=== PATIENT | male | born 1960 | race Caucasian/White ===

== ENCOUNTER → 2016-03-18 | Outpatient (REF) ==
--- NOTE | 2016-03-18 21:44 | REP ---
Clinical: Pain and disability. Technique: Internal rotation, external rotation, and Y view of the right shoulder. Findings: Spurring and cortical irregularity at the acromioclavicular joint noted without evidence for acute or healed fracture/injury. Subtle blunting to the glenoid rim is suggested with minimal increased sclerosis and cortical irregularity along the inferior rim. The joint spaces otherwise intact. No acute fracture. Subacromial space is normal. No periarticular calcifications are identified. Impression: Mild arthritic degenerative changes. Signed by Farhad Fernandez MD 03/18/2016 09:36 P
--- NOTE | 2016-03-18 21:57 | REP ---
Clinical: Pain and disability. Technique: AP, lateral, bilateral oblique, and coned-down views of the left knee. Findings: The tibiofemoral joint demonstrates subtle medial narrowing with a minuscule marginal spurring as well as cortical irregularity to the femoral condyles. The posterior patellar margin demonstrates increased sclerosis with minimal patellofemoral joint space narrowing and lateral / inferior osteophyte. Suprapatellar effusion suggested by lateral radiograph with mild anterior swelling. Impression: Mild arthritic degenerative changes as described above. Signed by Farhad Fernandez MD 03/18/2016 09:49 P
== END ==
LOC: M SMT 11:09
PROVIDERS: ATTEND Internal Medicine
DX: Z02.71 Encounter for disability determination (principal)

== ENCOUNTER → 2016-05-27 | Outpatient (CLI) | payer OTHER ==
[~2016-05-27] MED LIST: ASPI81TA85 PO; LOSA50TA20 PO; MULT1TAB10 PO; SIMV40TA2 PO; TERA10CA3 PO
[2016-05-27 13:23] LABS: ALBUMIN 4.3 GM/DL (3.2-5.2); ALBUMIN/GLOBULIN RATIO 1.23 (1.00-1.93); ALKALINE PHOSPHATASE 87 U/L (45-117); ALT/SGPT 37 U/L (12-78); ANION GAP 8 MEQ/L (8-16); AST/SGOT 25 U/L (15-37); BILIRUBIN,TOTAL 0.7 MG/DL (0.2-1.0); BLOOD UREA NITROGEN 19 MG/DL (7-18); CALCIUM LEVEL 9.3 MG/DL (8.5-10.1); CARBON DIOXIDE LEVEL 27 MEQ/L (21-32); CHLORIDE LEVEL 103 MEQ/L (98-107); CREATININE FOR GFR 0.78 MG/DL (0.70-1.30); GLOMERULAR FILTRATION RATE > 60.0 (>56); GLUCOSE, FASTING 103 MG/DL (70-105); POTASSIUM SERUM 4.6 MEQ/L (3.5-5.1); SODIUM LEVEL 138 MEQ/L (136-145); TOTAL PROTEIN 7.8 GM/DL (6.4-8.2)
[2016-05-27 13:25] LABS: MEAN CORPUSCULAR HGB CONC 32.9 g/dl (32.0-36.5); MEAN CORPUSCULAR VOLUME 91.4 fl (80.0-96.0); RED CELL DISTRIBUTION WIDTH 12.9 % (11.5-14.5); WHITE BLOOD COUNT 10.2 K/mm3 (4.0-10.0)
[2016-05-27 13:32] LABS: INR 0.89
--- NOTE | 2016-05-27 22:38 | ECGEPIP ---
Stationary ECG Study [facility] Test Date: 2016-05-27 Pat Name: CHERYL PYLE Department: Room: - Gender: M [employer] Vehicle Operator: MARGA : 1960 Requested By: John Stockton Order Number: [id number] Reading MD: Navi Hadley Measurements Intervals [place] Rate: 84 P: 36 WI: 142 QRS: 41 QRSD: 84 T: 26 QT: 370 QTc: 438 Interpretive Statements SINUS RHYTHM WITH FREQUENT VENTRICULAR PREMATURE COMPLEXES ABNORMAL RHYTHM ECG NO PRIOR TRACING IN THE SYSTEM Electronically Signed On 05-27-2016 22:38:12 EDT by Navi Hadley
--- NOTE | 2016-05-28 03:49 | REP ---
Clinical: Hypertension and chest pain . Comparison: None . Technique: PA and lateral. Findings: The mediastinum and cardiac silhouette are normal. The lung rapp are clear and without acute consolidation, effusion, or pneumothorax. The skeletal structures are intact and normal. Impression: 1. No acute cardiopulmonary process. Signed by Farhad Fernandez MD 05/28/2016 03:40 A
== END ==
LOC: M ADMPAT 10:07
PROVIDERS: ATTEND Orthopaedic Surgery
DX: Z01.818 Encounter for other preprocedural examination (principal); M17.11 Unilateral primary osteoarthritis, right knee

== ENCOUNTER 2016-06-08 07:10 | Inpatient (IN) | payer OTHER ==
[2016-05-27 11:17] VITALS: BP 159/106
--- NOTE | 2016-06-02 13:18 | HPE ---
DATE OF ADMISSION: 06/08/2016 CHIEF COMPLAINT: Right knee pain and stiffness from work-related injury. ATTENDING PHYSICIAN: Dr. Stockton HISTORY: This is a pleasant 55-year-old male patient with progressively worsening right knee pain and stiffness. He has failed to improve with conservative management to include injections, activity modification and a home physical therapy program. His symptoms all stem from a longstanding work-related injury to that left knee. He has symptoms with weightbearing activities and activities of daily living He has advanced degenerative changes of the right knee on x- ray. He has elected for surgery for his continued symptoms. He has consented for a right total knee arthroplasty by Dr. Stockton. ALLERGIES: No known drug allergies. CURRENT MEDICATIONS: - aspirin 81 mg one tablet once per day, discontinue that on Wednesday - Zocor 20 mg one tablet at bedtime - Losartan 50 mg one tablet once per day - terazosin 1 mg one tablet once per day MEDICAL HISTORY: Includes: Symptomatic osteoarthritis of right knee. Elevated cholesterol. Hypertension. Benign prostatic hypertrophy (BPH). SURGICAL HISTORY: He has had a prior knee scope on the right side. He has had his spleen removed. He has had a prior femur fracture. SOCIAL HISTORY: He uses alcohol occasionally. He continues to smoke. FAMILY HISTORY: Noncontributory. REVIEW OF SYSTEMS: Denies fever or chills. Denies chest pain, shortness breath or cough. Denies difficulty breathing. Denies abdominal pain. Denies nausea or vomiting. Denies recent upper respiratory infection (URI) or urinary tract infection (UTI) symptoms. PHYSICAL EXAM: Today reveals a well-nourished, well-developed alert male patient. He walks with a limping gait. He favors his right side. Exam of the right knee does reveal range of motion is 0 to about 110 degrees. There is tenderness over the medial joint line. The calf is soft, nontender to palpation. The skin is intact. No erythema, edema or ecchymosis. There is trace pitting edema in the right leg. Dorsalis pedis, posterior tib pulses are palpable. Neck is supple without adenopathy or jugular venous distention (JVD). Lungs are clear to auscultation without rales or wheeze. Heart regular rate and rhythm. Abdomen: Bowel sounds are present. Current vital signs: Blood pressure 144/86, pulse 88, respirations 16, weight 340 pounds, temperature 97.3, height 5 foot 10. Laboratory data: UA is within normal limits. Urine culture no growth. Nasal and sinus cultures normal arleen. Glucose 103, BUN 19, creatinine 0.78. Sodium 138, potassium 4.6, sed rate of 10, WBC count 10.2, hemoglobin 14.8, hematocrit 45.1, INR 0.89. ProTime 12.2. IMPRESSION: Symptomatic osteoarthritis of his right knee. PLAN: He has consented for right total knee arthroplasty by Dr. Stockton. ADDENDUM (06/08/2016): The patient seen and examined. He wished to go ahead with a right total knee arthroplasty. The gentleman is morbidly obese and understands the nature of this and the risks of bleeding, infection, damage to nerves, vessels, persistent pain, wear loosening, blood clots, medical problems , among others. He also reminds me that he had an old femur fracture on this side so we will have to likely use some sort of external alignment guide as opposed to the intramedullary alignment. Preoperative clearance was obtained. VLAD
[~2016-06-08] VITALS: Ht 180.3 cm; Wt 154.0 kg
[2016-06-08] MEDS ORDERED: COUM1TAB17 PO (08:04)
[2016-06-08] MEDS ORDERED: LR 1,000 ML IV SCH ×3 (08:45→12:15)
[2016-06-08] MEDS ORDERED: MIDAZOLAM INJ 2 MG/2 ML VIAL (J2250) As Ordered ONE ×3 (08:59→11:26)
[2016-06-08] MEDS ORDERED: fentaNYL 100 MCG/2 ML INJECTION (J3010) As Ordered ONE ×2 (08:59→09:57)
[2016-06-08] MEDS: fentaNYL 100 MCG/2 ML INJECTION (J3010) IV PRN ×2 (09:10→09:22)
[2016-06-08] MEDS: MIDAZOLAM INJ 2 MG/2 ML VIAL (J2250) IV PRN ×2 (09:10→09:15)
[2016-06-08] MEDS ORDERED: PROPOFOL 200 MG/20 ML VIAL As Ordered ONE (09:39)
[2016-06-08] MEDS ORDERED: ONDANSETRON 4MG/2ML VIAL (J2405) As Ordered ONE (09:39)
[2016-06-08] MEDS ORDERED: LIDOCAINE 2% INJ 100 MG/5 ML SDV (FOR ANES.) As Ordered ONE (09:39)
[2016-06-08] MEDS ORDERED: dexameTHASONE 4 MG/ML 1ML VIAL (J1100) As Ordered ONE (09:39)
[2016-06-08] MEDS ORDERED: TRANEXAMIC ACID 100 MG/ML 10ML VIAL As Ordered ONE (09:44)
[2016-06-08] MEDS ORDERED: BUPIVACAINE HCL 0.25% 30 ML VIAL As Ordered ONE (09:45)
[2016-06-08] MEDS ORDERED: EPINEPHrine INJ 1 MG/ML 1ML VIAL/AMP As Ordered ONE (09:45)
[2016-06-08] MEDS ORDERED: ceFAZolin 1GM INJ (J0690) As Ordered ONE ×2 (09:45→09:51)
[2016-06-08] MEDS ORDERED: MORPHINE PCA 1MG/ML 100ML CADD As Ordered ONE (12:00)
[2016-06-08] MEDS ORDERED: NALOXONE INJ 0.4 MG/1 ML VIAL (J2310) IV PRN (12:15)
[2016-06-08] MEDS ORDERED: FLEET ENEMA PR PRN (12:15)
[2016-06-08] MEDS ORDERED: ONDANSETRON 4MG/2ML VIAL (J2405) IV PRN ×3 (12:15)
[2016-06-08] MEDS ORDERED: fentaNYL 100 MCG/2 ML INJECTION (J3010) IV PRN (12:15)
[2016-06-08] MEDS ORDERED: MEPERIDINE INJ 25 MG/ML VIAL (J2175) IV PRN (12:15)
[2016-06-08] MEDS ORDERED: EPIDURAL/PCA KEYS XX PRN (12:15)
[2016-06-08] MEDS ORDERED: PATIENT IS CURRENTLY ON AN ON-Q PAIN BUSTER PAIN RELIEF SYSTEM XX SCH (12:15)
[2016-06-08] MEDS ORDERED: NALBUPHINE HCL 10 MG/ML AMP (J2300) IV PRN (12:15)
[2016-06-08] MEDS ORDERED: MORPHINE PCA 1MG/ML 100ML CADD IV PRN (12:15)
[2016-06-08] MEDS ORDERED: diphenhydrAMINE INJ 50MG/ML VIAL (J1200) IV PRN (12:15)
[2016-06-08] MEDS ORDERED: ACETAMINOPHEN TAB 650MG DOSE (2X325MG) PO PRN (12:15)
[2016-06-08] MEDS ORDERED: PERCOCET 5MG/325MG TAB PO PRN (12:15)
--- NOTE | 2016-06-08 12:15 | IPNPDOC ---
Subjective Date Seen The patient was seen on 06/08/16. Subjective Chief Complaint/HPI The patient is a 55-year-old male admitted with a reason for visit of Arthritis Right Knee. Events since last encounter patient had elective right total knee replacement at present patient does not have any complaints, no chest pain or sob , no abdominal pain, nausea or vomiting or diarrhea, Objective Physical Examination General Exam: Positive: Alert, No Acute Distress Eye Exam: Positive: Conjunctiva & lids normal, EOMI, PERRLA, Negative: Sclera icteric ENT Exam: Positive: Atraumatic, Mucous membr. moist/pink, Pharynx Normal Neck Exam: Positive: Supple, Negative: JVD, thyromegaly Chest Exam: Positive: Clear to auscultation, Normal air movement Heart Exam: Positive: Normal S1, Normal S2, Rate Normal, Regular Rhythm, Negative: Murmurs, Rubs Abdomen Exam: Positive: Normal bowel sounds, Soft, Negative: Hepatospenomegaly, Tenderness Extremity Exam: Positive: Normal pulses, Negative: Clubbing, Cyanosis, Edema Skin Exam: Positive: Nl turgor and temperature, Negative: Breakdown, Rash Assessment /Plan Problems (1) Status post total right knee replacement Status: Acute Problem Text: Dr Rose will be following the patient from 06/09/16 elective surgery for advanced osteoarthritis pain control and dvt prophylaxis as per orthopedics. (2) Hypertension Status: Chronic Problem Text: will continue home medications with hold parameters. (3) Hyperlipidemia Status: Chronic Problem Text: will continue simvastatin (4) BPH (benign prostatic hyperplasia) Status: Chronic Problem Text: will continue terazosin. (5) Morbid obesity Status: Chronic Plan/VTE VTE Prophylaxis Ordered?: Yes VS, I&O, 24H, Fishbone Vital Signs/I&O Vital Signs Date Time Temp Pulse Resp B/P Pulse Ox O2 Delivery O2 Flow Rate FiO2 06/08/16 09:38 70 20 155/90 98 Nasal Cannula 3 06/08/16 07:51 98.7 DELMI RILEY MD Jun 08, 2016 10:22
[2016-06-08] MEDS ORDERED: dexameTHASONE 10 MG/1 ML VIAL PRES.FREE (J1100) ONE (13:38)
[2016-06-08] MEDS ORDERED: LIDOCAINE 1% MDV 20ML VIAL ONE (13:38)
[2016-06-08] MEDS ORDERED: ROPIvacaine 0.5% 30 ML INJECTION (J2795) ONE (13:38)
--- NOTE | 2016-06-08 13:38 | RO ---
DATE OF PROCEDURE: 06/08/2016 PREOPERATIVE DIAGNOSIS: Right knee osteoarthritis, advanced, with morbid obesity. POSTOPERATIVE DIAGNOSIS: Right knee osteoarthritis, advanced, with morbid obesity. PROCEDURE: Right total knee arthroplasty using a PFC rotating platform, size 5 femur, size 5 tibia, 12.5 polyethylene and a 38 patellar button. This was a posterior stabilized knee. This was an unusually difficult procedure with a patient with a body mass index (BMI) of over 46 and a previous femur fracture on the right. SURGEON: Dr. John Stockton CAREER BASED INTERVENTION COORDINATOR: Dane Kamara ANESTHESIA: Spinal. ESTIMATED BLOOD LOSS: Less than 50. COMPLICATIONS: None. INDICATIONS: This is a 55-year-old gentleman who had a remote injury involving his right knee, femur, etc. He had a femur fracture that was treated in traction, he believes back in 1976. He wished to go ahead with a knee replacement having failed conservative management. He understood that his morbid obesity would increase the risks of infection, bleeding, or malposition and multiple other risks are increased with the patient's weight. The risks were understood by the patient including bleeding, infection, damage to nerves, vessels, persistent pain, wear, loosening, blood clots, medical problems, among others. PROCEDURE: The patient was taken to the operating room and placed in supine position after spinal anesthesia was induced. The right lower extremity was prepped and draped in the usual sterile fashion. Tourniquet was inflated after a time-out was performed. I then created a longitudinal incision over the anterior aspect of the knee. Sharp dissection was carried down through subcutaneous tissue until the fascia was encountered. This was incised with a medial parapatellar arthrotomy per routine, which was relatively difficult due to the size of his leg. We had difficulty everting the patella due to his obesity, but were able to do so eventually and flex the knee up. Used the canal initiating reamer, followed by the intramedullary guide, which I was able to get up most of the way on the femur and at least advance most of the guide in. We pinned this in place on the end of the femur. The delivery assistant did this. Set it at 5 degrees and 10 mm of cut. We then used the external alignment guide off of this to make sure that the alignment was appropriate and this seemed to be well aligned with the ASIS. Distal femoral cut was made, but we then backed it off 2 more millimeters. It just seemed like it was a thin distal femoral cut. The sizing block was then used and sized to be a size 5. The 4-in-1 cutting block was secured to the end of the femur and the remaining cuts were made in the usual fashion protecting soft tissues. Then directed our attention to the tibia. We freed up the anterior cruciate ligament (ACL) and some of the attachment of the posterior cruciate ligament (PCL). We put the retractors in, which was very difficult, but were able to put the alignment guide on and check the alignment with the external alignment guide. We were pleased with the alignment and posterior slope of the tibial component. We had pinned this about 4 mm off the low side and then made the cut. Again, this was relatively difficult removing this bone. Posterior osteophytes and soft tissue removed from either side of the knee. We then used the spacer blocks and the 12.5 seemed to have the appropriate stability in flexion and extension. I had done a medial release as well earlier and was overall pleased with soft tissue tension, alignment and bone cuts. Then prepared the tibia. It sized to be a size 5. This was pinned in place. We drilled, broached. The trial components were then placed and had a good range of motion. Flexion was limited somewhat by his soft tissue touching in the back of his knee. Alignment and stability seemed quite good with a 12.5 polyethylene. I did not feel I could go any thicker because it clearly would have been too tight. The patella was freehand cut, removing about 7 or 8 mm of bone. It was sized to be a 38. This was drilled and the patella was placed. I did have to perform a lateral release in order to get the patella to track well. I then drilled the end of the femur through the trial prosthesis. The trial components were removed. The delivery assistant prepared the bone cement in the modern technique on the back table. I irrigated copiously and dried the bony surfaces. I then cemented on the tibial tray, impacted it in place, removed excess bone cement, and placed the 12.5 rotating polyethylene size 5. Then cemented on the femoral component. Again, removed excess bone cement and cemented on the patella. Removed excess bone cement and irrigated again copiously as I had multiple times prior to this. I then placed the tranexamic acid (TXA) solution with epinephrine in the knee. Closed the deep layer with interrupted #1 Vicryl sutures at various spots throughout. Then removed the patellar clamp when the cement was hardened. Then closed the deep layer with the Stratafix suture single-arm running in each direction, irrigation was then performed and closed the subcutaneous with #2-0 Vicryl and the skin with marleny. The PainBuster catheter was inserted through the lateral aspect of the knee in the usual fashion and attached to the skin. This was primed with 10 mL Marcaine and fentanyl. Sterile dressing was applied. Tourniquet had been deflated. He was taken to the recovery room in stable condition. There were no known complications. The delivery assistant was instrumental in holding retractors, making the distal femoral cuts, mixing the bone cement, and assisting in closure. This was coded as an unusually difficult procedure due to the fact that he had a previous femur fracture that actually required intraoperative C-arm at the beginning of the case and made it more challenging to determine his alignment, and due to his obesity which made the entire operation more challenging. At the very beginning of the procedure when we had placed the spinal, I did take some C-arm images to store sales manager the height of this femur fracture, which appeared to be midshaft. It was a little bit varus, but it appeared as though we could get the intramedullary guide up far enough to get a good store sales manager on the alignment.
[2016-06-08 13:45] VITALS: BP 140/71
[2016-06-08] MEDS: LOSARTAN 50 MG TAB PO SCH (16:14)
[2016-06-08 16:45] VITALS: BP 156/79
[2016-06-08] MEDS ORDERED: WARFARIN SOD 5 MG TAB PO SCH (17:00)
[2016-06-08 17:45] VITALS: BP 139/77
[2016-06-08] MEDS ORDERED: SIMVASTATIN 20 MG TAB PO SCH (21:00)
[2016-06-08] MEDS ORDERED: TERAZOSIN 1 MG CAP PO SCH (21:00)
[2016-06-08 22:00] VITALS: BP 142/76
[2016-06-09 02:00] VITALS: BP 138/80
[2016-06-09 06:00] VITALS: BP 158/78
[2016-06-09] MEDS ORDERED: ONDANSETRON 4 MG TAB (S0181) PO PRN (06:45)
[2016-06-09 06:49] LABS: MEAN CORPUSCULAR HEMOGLOBIN 30.3 pg (27.0-33.0); MEAN CORPUSCULAR HGB CONC 33.1 g/dl (32.0-36.5); MEAN CORPUSCULAR VOLUME 91.5 fl (80.0-96.0); RED CELL DISTRIBUTION WIDTH 12.7 % (11.5-14.5); WHITE BLOOD COUNT 17.9 K/mm3 (4.0-10.0)
[2016-06-09 06:54] LABS: INR 1.07
[2016-06-09 07:38] LABS: ANION GAP 8 MEQ/L (8-16); BLOOD UREA NITROGEN 18 MG/DL (7-18); CALCIUM LEVEL 8.6 MG/DL (8.5-10.1); CARBON DIOXIDE LEVEL 26 MEQ/L (21-32); CHLORIDE LEVEL 106 MEQ/L (98-107); GLOMERULAR FILTRATION RATE > 60.0 (>56); GLUCOSE, FASTING 137 MG/DL (70-105); POTASSIUM SERUM 4.2 MEQ/L (3.5-5.1); SODIUM LEVEL 140 MEQ/L (136-145)
[2016-06-09] MEDS: SENOKOT S TAB PO SCH ×2 (09:30→21:00)
[2016-06-09] MEDS: TERAZOSIN 1 MG CAP PO SCH (09:31)
[2016-06-09] MEDS: SIMVASTATIN 20 MG TAB PO SCH (09:31)
[2016-06-09] MEDS: LOSARTAN 50 MG TAB PO SCH (09:31)
[2016-06-09] MEDS: MOM 30ML SUSPENSION UDC PO SCH (09:31)
[2016-06-09] MEDS: MIRALAX *UNIT DOSE* 17GM PACKET PO SCH (09:32)
[2016-06-09] MEDS: PERCOCET 5MG/325MG TAB PO PRN ×4 (09:34→22:34)
[2016-06-09 10:00] VITALS: BP 130/60
--- NOTE | 2016-06-09 11:02 | REP ---
RIGHT KNEE TWO VIEWS: HISTORY: Postoperative. The patient is status post right total knee replacement. There is no acute fracture or dislocation. A small amount of subcutaneous air and surgical marleny are present in the overlying soft tissue. IMPRESSION: The patient is status post right total knee replacement. There is anatomic alignment. Signed by Donta Sidhu MD 06/09/2016 11:07 A
[2016-06-09 14:00] VITALS: BP 147/67
[2016-06-09] MEDS ORDERED: WARFARIN SOD 5 MG TAB PO ONE (17:00)
[2016-06-09] MEDS ORDERED: MORPHINE 2 MG/ML 1ML SYRINGE IV PRN (21:15)
[2016-06-09 22:00] VITALS: BP 179/79
[2016-06-10] MEDS: PERCOCET 5MG/325MG TAB PO PRN ×6 (02:56→23:51)
[2016-06-10 06:00] VITALS: BP 145/69
[2016-06-10 07:42] LABS: MEAN CORPUSCULAR HEMOGLOBIN 30.7 pg (27.0-33.0); MEAN CORPUSCULAR HGB CONC 33.7 g/dl (32.0-36.5); MEAN CORPUSCULAR VOLUME 91.1 fl (80.0-96.0); RED CELL DISTRIBUTION WIDTH 12.7 % (11.5-14.5); WHITE BLOOD COUNT 15.8 K/mm3 (4.0-10.0)
[2016-06-10 08:16] LABS: INR 1.16
[2016-06-10] MEDS: TERAZOSIN 1 MG CAP PO SCH (08:30)
[2016-06-10] MEDS: SENOKOT S TAB PO SCH ×2 (08:30→20:30)
[2016-06-10] MEDS: SIMVASTATIN 20 MG TAB PO SCH (08:30)
[2016-06-10] MEDS: LOSARTAN 50 MG TAB PO SCH (08:30)
[2016-06-10] MEDS: MOM 30ML SUSPENSION UDC PO SCH (08:31)
[2016-06-10] MEDS: MIRALAX *UNIT DOSE* 17GM PACKET PO SCH ×2 (08:31→11:28)
[2016-06-10] MEDS ORDERED: WARFARIN SOD 7.5 MG TAB PO ONE (17:00)
[2016-06-10 22:00] VITALS: BP 168/79
[2016-06-11] MEDS: PERCOCET 5MG/325MG TAB PO PRN ×2 (04:03→08:38)
[2016-06-11 06:00] VITALS: BP 135/62
[2016-06-11 07:08] LABS: INR 1.22
[2016-06-11] MEDS ORDERED: ENOXAPARIN 40 MG/0.4 ML SYRINGE (J1650) SC ONE (08:00)
[2016-06-11] MEDS: SIMVASTATIN 20 MG TAB PO SCH (08:36)
[2016-06-11] MEDS: SENOKOT S TAB PO SCH (08:36)
[2016-06-11] MEDS: TERAZOSIN 1 MG CAP PO SCH (08:36)
[2016-06-11 08:37] VITALS: BP 135/62
[2016-06-11] MEDS: LOSARTAN 50 MG TAB PO SCH (08:37)
[2016-06-11] MEDS ORDERED: COUM2.5T11 PO (08:38)
[2016-06-11] MEDS ORDERED: PERC5TAB6 PO (08:38)
[2016-06-11] MEDS: MIRALAX *UNIT DOSE* 17GM PACKET PO SCH (09:00)
[2016-06-11] MEDS: MOM 30ML SUSPENSION UDC PO SCH (09:00)
--- NOTE | 2016-06-11 09:01 | IPNPDOC ---
Subjective Date Seen The patient was seen on 06/11/16. Subjective Chief Complaint/HPI The patient is a 55-year-old male admitted with a reason for visit of Arthritis Right Knee. Events since last encounter pt seen and examined, doing well pain is controlled Objective Physical Examination General Exam: Positive: Alert, No Acute Distress Eye Exam: Positive: Conjunctiva & lids normal, EOMI, PERRLA, Negative: Sclera icteric ENT Exam: Positive: Atraumatic, Mucous membr. moist/pink, Pharynx Normal Neck Exam: Positive: Supple, Negative: JVD, thyromegaly Chest Exam: Positive: Clear to auscultation, Normal air movement Heart Exam: Positive: Normal S1, Normal S2, Rate Normal, Regular Rhythm, Negative: Murmurs, Rubs Abdomen Exam: Positive: Normal bowel sounds, Soft, Negative: Hepatospenomegaly, Tenderness Extremity Exam: Positive: Normal pulses, Negative: Clubbing, Cyanosis, Edema Skin Exam: Positive: Nl turgor and temperature, Negative: Breakdown, Rash Assessment /Plan Problems (1) Status post total right knee replacement Status: Acute Problem Text: * elective surgery for advanced osteoarthritis * pain control and dvt prophylaxis as per orthopedics. (2) Hypertension Status: Chronic Problem Text: continue medication (3) Hyperlipidemia Status: Chronic Problem Text: will continue simvastatin (4) BPH (benign prostatic hyperplasia) Status: Chronic Problem Text: will continue terazosin. (5) Morbid obesity Status: Chronic Plan/VTE VTE Prophylaxis Ordered?: Yes VS, I&O, 24H, Fishbone Vital Signs/I&O Vital Signs Date Time Temp Pulse Resp B/P Pulse Ox O2 Delivery O2 Flow Rate FiO2 06/11/16 08:38 18 06/11/16 08:37 135/62 06/11/16 07:23 Room Air 06/11/16 06:00 98.3 82 98 06/08/16 09:38 3 I&O- Last 24 Hours up to 6 AM 06/11/16 06:00 Intake Total 360 ml Output Total 1400 ml Balance -1040 ml Laboratory Data 24H LABS Laboratory Tests 2 06/11/16 06:46: Prothromb Time International Ratio 1.22, Prothrombin Time 15.5H TORRI MARQUEZ DO Jun 11, 2016 09:01
[2016-06-11] MEDS ORDERED: INFLUENZA QUADRIVALENT PF VACCINE 0.5ML SYRINGE/VIAL (90686) IM ONE (10:30)
== END 2016-06-11 11:46 | disposition home or self-care (01) | DRG 302 ==
LOC: M OR 07:10 → M MS5PR 13:41
PROVIDERS: ADMIT Orthopaedic Surgery; ATTEND Orthopaedic Surgery
PROC: 0SRC0J9 Replacement of Right Knee Joint with Synthetic Substitute, Cemented, Open Approach (ICD-10-PCS; principal; 2016-06-08 09:15)
DX: M17.11 Unilateral primary osteoarthritis, right knee (principal); E66.01 Morbid (severe) obesity due to excess calories; Z68.42 Body mass index [BMI] 45.0-49.9, adult; Z79.82 Long term (current) use of aspirin; Z79.899 Other long term (current) drug therapy; I10 Essential (primary) hypertension; E78.5 Hyperlipidemia, unspecified; N40.0 Benign prostatic hyperplasia without lower urinary tract symptoms; F17.200 Nicotine dependence, unspecified, uncomplicated

== ENCOUNTER → 2016-06-22 | Outpatient (REF) | payer OTHER ==
[~2016-06-22] MED LIST changes: +COUM1TAB17 PO; +COUM2.5T11 PO; +PERC5TAB6 PO
== END ==
LOC: M LABDRAW1 11:28
PROVIDERS: ATTEND Nurse Practitioner Family
DX: Z51.81 Encounter for therapeutic drug level monitoring (principal); Z79.01 Long term (current) use of anticoagulants

== ENCOUNTER → 2019-11-02 | Outpatient (CLI) | payer MEDICARE, OTHER ==
[~2019-11-02] MED LIST changes: -ASPI81TA85 PO; +ASPI81TA86 PO; -COUM2.5T11 PO; +COUM2.5T17 PO; +HYZA100T2 PO; -LOSA50TA20 PO; +LOSA50TA88 PO; +PERC5TAB12 PO; -PERC5TAB6 PO; -SIMV40TA2 PO; +SIMV40TA20 PO; +SULF500T41 PO
== END ==
LOC: M LABSMTC 11:20
PROVIDERS: ATTEND Anesthesiology
DX: Z01.812 Encounter for preprocedural laboratory examination (principal); Z11.59 Encounter for screening for other viral diseases

== ENCOUNTER 2019-11-07 07:20 | Day surgery (SDC) | payer MEDICARE ==
[~2019-11-07] VITALS: Ht 180.3 cm; Wt 157.9 kg
[~2019-11-07 07:20] MED LIST changes: +LIDOCAINE 2% 100MG/5ML SDV (FOR ANES.) As Ordered ONE; +propofoL 200 MG/20 ML VIAL As Ordered ONE
[2019-11-07] MEDS ORDERED: NS 1,000 ML IV ONE (08:00)
[2019-11-07 09:00] VITALS: BP 133/80
--- NOTE | 2019-11-22 11:35 | ROOR ---
Patient Name: Doe Nayak Procedure Date: 11/07/2019 8:11 AM Date of : 1960 Age: 58 Room: [facility] Gender: Male Note Status: Finalized Procedure: Colonoscopy Indications: Follow-up of ulcerative colitis Providers: Dexter Pena MD Referring MD: SHAKIR NIETO MD Requesting Provider: Medicines: Monitored Anesthesia Care Complications: No immediate complications. Procedure: Pre-Anesthesia Assessment: - Prior to the procedure, a History and Physical was performed, and patient medications and allergies were reviewed. The patient is competent. The risks and benefits of the procedure and the sedation options and risks were discussed with the patient. All questions were answered and informed consent was obtained. Patient identification and proposed procedure were verified by the physician, the nurse and the anesthesiologist in the procedure room. Mental Status Examination: alert and oriented. Airway Examination: normal oropharyngeal airway and neck mobility. Respiratory Examination: clear to auscultation. CV Examination: normal. Prophylactic Antibiotics: The patient does not require prophylactic antibiotics. Prior Anticoagulants: The patient has taken no previous anticoagulant or antiplatelet agents. ASA Grade Assessment: III - A patient with severe systemic disease. After reviewing the risks and benefits, the patient was deemed in satisfactory condition to undergo the procedure. The anesthesia plan was to use monitored anesthesia care (MAC). Immediately prior to administration of medications, the patient was re-assessed for adequacy to receive sedatives. The heart rate, respiratory rate, oxygen saturations, blood pressure, adequacy of pulmonary ventilation, and response to care were monitored throughout the procedure. The physical status of the patient was re-assessed after the procedure. The Colonoscope was introduced through the anus and advanced to the terminal ileum, with identification of the appendiceal orifice and IC valve. The colonoscopy was performed without difficulty. The patient tolerated the procedure well. The quality of the bowel preparation was good. The terminal ileum, ileocecal valve, appendiceal orifice, and rectum were photographed. Scope insertion time was 2 minutes. Scope withdrawal time was 9 minutes. The total duration of the procedure was 14 minutes. Findings: The perianal and digital rectal examinations were normal. The terminal ileum appeared normal. Patchy moderate mucosal changes characterized by congestion (edema), erythema, granularity and loss of vascularity were found in the sigmoid colon, in the descending colon and in the distal transverse colon. Four biopsies were obtained with cold forceps for histology in the right colon, as well as eight biopsies in the left colon and two biopsies in the rectum. Verification of patient identification for the specimen was done by the physician and nurse using the patient's name, date and medical record number. Estimated blood loss was minimal. A 8 mm polyp was found in the ascending colon. The polyp was sessile. The polyp was removed with a cold snare. Resection and retrieval were complete. A few small and large-mouthed diverticula were found in the sigmoid colon. Non-bleeding external and internal hemorrhoids were found during retroflexion. The hemorrhoids were medium-sized. Impression: - The examined portion of the ileum was normal. - Patchy moderate mucosal changes were found in the sigmoid colon, in the descending colon and in the distal transverse colon secondary to left-sided colitis. - One 8 mm polyp in the ascending colon, removed with a cold snare. Resected and retrieved. - Diverticulosis in the sigmoid colon. - Non-bleeding external and internal hemorrhoids. - Biopsies performed in the right colon, in the left colon and in the rectum. Recommendation: - Patient has a contact number available for emergencies. The signs and symptoms of potential delayed complications were discussed with the patient. Return to normal activities tomorrow. Written discharge instructions were provided to the patient. - High fiber diet. - Continue present medications. - Await pathology results. - Use fiber, for example Citrucel, Fibercon, Konsyl or Metamucil. - Repeat colonoscopy in 5 years for surveillance based on pathology results. - Return to GI clinic in [facility] (address [address], [address], [place], [facility]) in 4 -- 6 weeks. Please call GI clinic @ [phone] for apppointment date and time. - Return to primary care physician. Dexter Pena MD Dexter Pena MD 11/07/2019 8:49:38 AM Number of Addenda: 0 Note Initiated On: 11/07/2019 8:11 AM Estimated Blood Loss: Estimated blood loss was minimal.
== END 2019-11-07 09:11 | disposition home or self-care (01) ==
LOC: M OPP 07:20
PROVIDERS: ATTEND Internal Medicine Gastroenterology
DX: K64.8 Other hemorrhoids (principal); K51.50 Left sided colitis without complications; D12.6 Benign neoplasm of colon, unspecified; K51.90 Ulcerative colitis, unspecified, without complications; K57.30 Diverticulosis of large intestine without perforation or abscess without bleeding; Z09 Encounter for follow-up examination after completed treatment for conditions other than malignant neoplasm; I10 Essential (primary) hypertension; Z79.82 Long term (current) use of aspirin; Z79.899 Other long term (current) drug therapy

== ENCOUNTER → 2020-12-16 | Outpatient (CLI) | payer MEDICARE ==
[~2020-12-16] MED LIST changes: +ECOT81TA5 PO; -LIDOCAINE 2% 100MG/5ML SDV (FOR ANES.) As Ordered ONE; +LOSA100T5 PO; +META0.52 PO; +OMEP-221 PO; +SIMV20TA22 PO; +SULF500T2 PO; +TERA2CAP3 PO; -propofoL 200 MG/20 ML VIAL As Ordered ONE
== END ==
LOC: M LABSMTC 11:03
PROVIDERS: ATTEND Anesthesiology
DX: Z20.822 Contact with and (suspected) exposure to COVID-19 (principal)

== ENCOUNTER 2020-12-20 06:38 | Day surgery (SDC) | payer MEDICARE ==
[~2020-12-20] VITALS: Ht 177.8 cm; Wt 158.0 kg
[~2020-12-20 06:38] MED LIST changes: +NS 1,000 ML IV ONE
[2020-12-20] MEDS ORDERED: LIDOCAINE 2% 100MG/5ML SDV (FOR ANES.) As Ordered ONE (07:24)
[2020-12-20] MEDS ORDERED: propofoL 200 MG/20 ML VIAL As Ordered ONE (07:24)
--- NOTE | 2020-12-20 08:19 | ROOR ---
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 Procedure: Pre-Anesthesia Assessment: - Prior to the procedure, a History and Physical was performed, and patient medications and allergies were reviewed. The patient is competent. The risks and benefits of the procedure and the sedation options and risks were discussed with the patient. All questions were answered and informed consent was obtained. Patient identification and proposed procedure were verified by the physician, the nurse and the anesthesiologist. Mental Status Examination: alert and oriented. Airway Examination: normal oropharyngeal airway and neck mobility. Respiratory Examination: clear to auscultation. CV Examination: normal. Prophylactic Antibiotics: The patient does not require prophylactic antibiotics. Prior Anticoagulants: The patient has taken no previous anticoagulant or antiplatelet agents. ASA Grade Assessment: II - A patient with mild systemic disease. After reviewing the risks and benefits, the patient was deemed in satisfactory condition to undergo the procedure. The anesthesia plan was to use monitored anesthesia care (MAC). Immediately prior to administration of medications, the patient was re-assessed for adequacy to receive sedatives. The heart rate, respiratory rate, oxygen saturations, blood pressure, adequacy of pulmonary ventilation, and response to care were monitored throughout the procedure. The physical status of the patient was re-assessed after the procedure. The Colonoscope was introduced through the anus and advanced to the terminal ileum, with identification of the appendiceal orifice and IC valve. The colonoscopy was performed without difficulty. The patient tolerated the procedure well. The quality of the bowel preparation was good. The terminal ileum, ileocecal valve, appendiceal orifice, and rectum were photographed. Scope insertion time was 3 minutes. Scope withdrawal time was 9 minutes. The total duration of the procedure was 12 minutes. Findings: The perianal and digital rectal examinations were normal. The terminal ileum appeared normal. Noted partial luminal herniation in transverse colon suggestive of Fritz hernia. No bowel luminal obstruction. Patchy mild inflammation characterized by erosions, erythema and friability was found in the proximal descending colon and in the distal transverse colon. Biopsies for histology were taken with a cold forceps from the right colon and left colon for evaluation of microscopic colitis. Verification of patient identification for the specimen was done by the physician and nurse using the patient's name, date and medical record number. Estimated blood loss was minimal. A few small-mouthed diverticula were found in the sigmoid colon. There was no evidence of diverticular bleeding. Non-bleeding external and internal hemorrhoids were found during retroflexion. The hemorrhoids were medium-sized. Impression: - The examined portion of the ileum was normal. - Patchy mild inflammation was found in the proximal descending colon and in the distal transverse colon secondary to left-sided colitis. Biopsied. - Moderate diverticulosis in the sigmoid colon. There was no evidence of diverticular bleeding. - Non-bleeding external and internal hemorrhoids. Recommendation: - Patient has a contact number available for emergencies. The signs and symptoms of potential delayed complications were discussed with the patient. Return to normal activities tomorrow. Written discharge instructions were provided to the patient. - High fiber diet. - Continue present medications. - Await pathology results. - Repeat colonoscopy in 5-10 years for surveillance based on pathology results. - Telephone GI clinic for pathology results in 2 weeks. - Return to GI clinic if persistent symptoms or new symptoms. - Return to primary care physician. Procedure Code(s): --- Professional --- 30164, Colonoscopy, flexible; with biopsy, single or multiple Diagnosis Code(s): --- Professional --- K51.50, Left sided colitis without complications K64.8, Other hemorrhoids K57.30, Diverticulosis of large intestine without perforation or abscess without bleeding CPT copyright 2019 [employer]. All rights reserved. The codes documented in this report are preliminary and upon remote inpatient coder review may be revised to meet current compliance requirements. Dexter Pena MD Dexter Pena MD 12/20/2020 8:18:33 AM Electronically signed by Dexter Pena MD Number of Addenda: 0 Note Initiated On: 12/20/2020 7:32 AM Estimated Blood Loss: Estimated blood loss was minimal.
[2020-12-20 08:30] VITALS: BP 137/74
== END 2020-12-20 08:33 | disposition home or self-care (01) ==
LOC: M OPP 06:38
PROVIDERS: ATTEND Internal Medicine Gastroenterology
DX: K51.50 Left sided colitis without complications (principal); K57.30 Diverticulosis of large intestine without perforation or abscess without bleeding; K64.8 Other hemorrhoids; Z80.0 Family history of malignant neoplasm of digestive organs; Z79.82 Long term (current) use of aspirin; Z79.899 Other long term (current) drug therapy; Z87.891 Personal history of nicotine dependence

== ENCOUNTER 2025-01-05 12:55 | Day surgery (SDC) | payer MEDICARE ==
[~2025-01-05] VITALS: Ht 177.8 cm; Wt 143.8 kg
[~2025-01-05 12:55] MED LIST changes: -HYZA100T2 PO; +LIDOCAINE 2% 100 MG/5 ML SDV (FOR ANES.) As Ordered ONE; +LOSA-534 PO; +LOSA50TA28 PO; -LOSA50TA88 PO; +METF500T13 PO; +MIDAZOLAM INJ 2 MG/2 ML VIAL As Ordered ONE; -NS 1,000 ML IV ONE; -OMEP-221 PO; +OMEP40CA5 PO; +PHEN37.511 PO; +TAMS-18 PO; +TOPI-21 PO
[2025-01-05] MEDS ORDERED: LR 1,000 ML IV SCH (13:35)
[2025-01-05] MEDS: BOTOX THERAPEUTIC 100 UNIT VIAL As Ordered ONE (14:00)
[2025-01-05] MEDS ORDERED: KETOROLAC 30 MG/ML 1 ML VIAL As Ordered ONE (14:10)
[2025-01-05 14:23] VITALS: BP 116/59; TEMP 98; O2SAT 97
== END 2025-01-05 14:45 | disposition home or self-care (01) ==
LOC: M SDC 12:55
PROVIDERS: ATTEND Surgery
DX: K43.2 Incisional hernia without obstruction or gangrene (principal); E66.01 Morbid (severe) obesity due to excess calories; I10 Essential (primary) hypertension; N40.0 Benign prostatic hyperplasia without lower urinary tract symptoms; E78.00 Pure hypercholesterolemia, unspecified; Z79.899 Other long term (current) drug therapy; Z79.84 Long term (current) use of oral hypoglycemic drugs; Z79.82 Long term (current) use of aspirin; Z68.42 Body mass index [BMI] 45.0-49.9, adult; Z90.49 Acquired absence of other specified parts of digestive tract; Z90.81 Acquired absence of spleen
CPT/HCPCS: 64646; J0585; J0665; J1885; J2250; J3010